=== PATIENT | female | born 1995 | race Caucasian/White ===

== ENCOUNTER 2017-11-19 12:49 | Emergency (ER) | payer OTHER ==
[2017-11-19 14:46] VITALS: BP 116/69
--- NOTE | 2017-11-19 15:06 | UC ---
Complaint Female HPI - History Of Current Complaint Chief Complaint: [facility] Stated Complaint: URINARY COMPLAINT Time Seen by Provider: 11/19/17 14:40 Hx Last Menstrual Period: 11/07/17 Pain Intensity: 2 - Allergies/Home Medications Allergies/Adverse Reactions: Allergies Allergy/AdvReac Type Severity Reaction Status Date / Time No Known Allergies Allergy Verified 11/19/17 14:38 Home Medications: Home Medications Cranberry Conc/C/Bacill Coag [Azo Cranberry 250-30 mg] 1 tab PO ONCE PRN [History Confirmed 11/19/17] Oral Contraceptive 1 tab PO DAILY 11/19/17 [History] PMH/Surg Hx/FS Hx/Imm Hx - Surgical History Surgical History: None - Social History Alcohol Use: Weekly Substance Use Type: None Smoking Status (MU): Never Smoked Tobacco Physical Exam Vital Signs: Initial Vital Signs Temp 97.9 F 11/19/17 14:39 Pulse 68 11/19/17 14:39 Resp 16 11/19/17 14:39 BP 116/69 11/19/17 14:39 Pulse Ox 99 11/19/17 14:39 Complaint Female Dx - Course Course Of Treatment: hx obtained, exam performed ,meds reviewed, urine culture sent, treated for UTI - Differential Dx/Diagnosis Differential Diagnosis/HQI/PQRI: Ureteral Stone, Urinary Tract Infection Provider Diagnoses: UTI Discharge - Discharge Plan Condition: Stable Disposition: HOME Prescriptions: Nitrofurantoin Macrocrystal [Nitrofurantoin] 100 mg PO BID #14 capsule Referrals: Non Staff,Doctor [Primary Care Provider] -
== END 2017-11-19 15:16 | disposition home or self-care (01) ==
LOC: UCCORT 12:49
DX: N39.0 Urinary tract infection, site not specified (principal); B96.20 Unspecified Escherichia coli [E. coli] as the cause of diseases classified elsewhere
CPT/HCPCS: 81003; 87077; 87086; 87186; 99202; G0463